=== PATIENT | male | born 1950 | race Hispanic/Latino ===

== ENCOUNTER 2017-07-08 10:28 | Emergency (ER) | payer MEDICARE ==
[2017-07-08] MEDS ORDERED: DIAZEPAM 5 MG TABLET ONE (10:48)
[2017-07-08] MEDS ORDERED: KETOROLAC TROMETHAMINE 30MG/ML ONE (10:48)
== END 2017-07-08 12:06 | disposition home or self-care (01) ==
LOC: EDH 10:28
DX: G89.29 Other chronic pain (principal); M54.5 Low back pain; M54.2 Cervicalgia; I10 Essential (primary) hypertension; Z88.6 Allergy status to analgesic agent
CPT/HCPCS: 96372; 99283; J1885

== ENCOUNTER 2018-02-02 01:20 | Emergency (ER) | payer OTHER, MEDICARE ==
[2018-02-02] MEDS ORDERED: KETOROLAC TROMETHAMINE 30MG/ML ONE (02:28)
== END 2018-02-02 02:46 | disposition home or self-care (01) ==
LOC: EDH 01:20
DX: M54.2 Cervicalgia (principal); M54.9 Dorsalgia, unspecified; K08.89 Other specified disorders of teeth and supporting structures; I10 Essential (primary) hypertension; M19.90 Unspecified osteoarthritis, unspecified site; Z88.6 Allergy status to analgesic agent; Z88.8 Allergy status to other drugs, medicaments and biological substances
CPT/HCPCS: 96372; 99283; J1885

== ENCOUNTER 2021-05-19 15:26 | Emergency (ER) | payer OTHER, MEDICARE ==
[~2021-05-19] VITALS: Ht 170.2 cm; Wt 100.2 kg
[2021-05-19 15:31] VITALS: BP 148/82
[2021-05-19] MEDS ORDERED: ALBU8.5H8 IH (16:32)
[2021-05-19] MEDS ORDERED: NIRM1TAB PO (16:32)
[2021-05-19] MEDS ORDERED: D-ME1POW16 PO (16:32)
== END 2021-05-19 16:44 | disposition home or self-care (01) ==
LOC: EDH 15:26
DX: U07.1 COVID-19 (principal); R05.9 Cough, unspecified; I11.0 Hypertensive heart disease with heart failure; E11.9 Type 2 diabetes mellitus without complications; J45.909 Unspecified asthma, uncomplicated; E78.00 Pure hypercholesterolemia, unspecified; Z79.899 Other long term (current) drug therapy
CPT/HCPCS: 71045; 87635; 87804 ×2; 99284; C9803

== ENCOUNTER → 2023-08-04 | Emergency (ER) | payer OTHER, MEDICARE ==
[~2023-08-04] VITALS: Ht 170.2 cm; Wt 97.1 kg
[~2023-08-04] MED LIST: ALBU8.5H8 IH; D-ME1POW16 PO; NIRM1TAB PO
[2023-08-04 14:08] VITALS: BP 133/69; PULSE 64; RESP 14
== END ==
LOC: EDH 13:48
DX: J02.9 Acute pharyngitis, unspecified (principal); Z53.21 Procedure and treatment not carried out due to patient leaving prior to being seen by health care provider
CPT/HCPCS: 99281